=== PATIENT | male | born 1970 | race Caucasian/White ===

== ENCOUNTER → 2020-08-26 13:15 | Outpatient (BNVA) | payer OTHER, SELFPAY | PROVIDERS: PCP Family Medicine; Visit Provider Urology | DX: R10.9 Unspecified abdominal pain (principal); N52.9 Male erectile dysfunction, unspecified; Z87.442 Personal history of urinary calculi; Z85.528 Personal history of other malignant neoplasm of kidney; Z90.5 Acquired absence of kidney | CPT/HCPCS: 81002 ==

== ENCOUNTER → 2020-09-15 08:24 | Outpatient (BNVA) | payer OTHER, SELFPAY | PROVIDERS: PCP Family Medicine; Visit Provider Urology | DX: C64.9 Malignant neoplasm of unspecified kidney, except renal pelvis (principal); R10.9 Unspecified abdominal pain; N20.0 Calculus of kidney; Z90.5 Acquired absence of kidney | CPT/HCPCS: 99212 ==

== ENCOUNTER 2020-09-29 13:15 | Outpatient (REF) | payer OTHER, SELFPAY ==
--- NOTE | 2020-09-29 13:18 | CT_ITS ---
EXAMINATION: CT ABDOMEN AND PELVIS WITHOUT CONTRAST CLINICAL INFORMATION: Malignant neoplasm of kidney COMPARISON: Previous renal ultrasound most recent February [address] of the abdomen and pelvis November 2014 TECHNIQUE: Multidetector volumetric imaging was performed from the superior aspect of the liver through the pubic symphysis. Sagittal and coronal reformatted images were obtained on the technologist's workstation. This CT examination was performed using dose optimization techniques as appropriate, variously including the following: *Automated exposure control *Adjustment of mA and/or kV according to patient size (this includes techniques or standardized protocols for targeted exams where dose is matched to indication/reason for exam; i.e. extremities or head) *Use of iterative reconstruction technique DLP: 1016 mGy-cm FINDINGS: LUNG BASES: The visualized lung bases are unremarkable. LIVER, GALLBLADDER, AND BILIARY TREE: The liver is low in attenuation suggestive of mild fatty infiltration. No focal liver lesion is seen. The gallbladder is normal. There is no biliary duct dilatation. PANCREAS: Unremarkable. SPLEEN: Unremarkable. ADRENAL GLANDS: Unremarkable. KIDNEYS AND URETERS: There are bilateral renal stones. There are at least 8 right renal stones. Largest stones measure 4 mm in the lower pole of the right kidney. There is a 1 cm high attenuation lesion exophytic to the posterior upper pole of the right kidney axial image 40 series 3. This is similar in size but higher in attenuation compared to previous CT scan. There are 3 left renal stones. Largest measures 3 x 6 mm in the lower pole. There is a 2 cm simple-appearing cyst exophytic to the anterior mid left kidney. This is new or increased from previous exam. There is a new 1 cm high attenuation lesion exophytic to the posterior upper pole axial image 40 series 3. There is a new low-attenuation 1.5 cm probable cyst exophytic to the posterior mid pole axial image 37 series 3. Other smaller cysts seen by CT with contrast and ultrasound are not appreciated on the current exam without contrast. BLADDER: Not distended. GASTROINTESTINAL TRACT: There is mild diverticulosis of the colon. The small and large bowel are unremarkable. The appendix is unremarkable. ABDOMINAL WALL: No significant hernia is appreciated. LYMPH NODES: Normal. VASCULAR: Unremarkable. PELVIC VISCERA: Unremarkable. OSSEOUS STRUCTURES: There is postsurgical change at the L4-L5 disc space. There are degenerative changes of the spine. There are degenerative changes at the hip joints. CT/CT abdomen pelvis wo con IMPRESSION: Bilateral renal stones. New bilateral high attenuation renal lesions. It is uncertain whether this represents hyperdense cysts or solid lesions. Follow-up CT or MRI with and without contrast the kidney is recommended. Mild diverticulosis of the colon.
== END 2020-09-29 13:16 | disposition home or self-care (01) ==
LOC: HO.CT 13:15
PROVIDERS: PCP Family Medicine; Visit Provider Urology
DX: C64.9 Malignant neoplasm of unspecified kidney, except renal pelvis (principal); R10.9 Unspecified abdominal pain; N20.0 Calculus of kidney; Z90.5 Acquired absence of kidney
CPT/HCPCS: 74176

== ENCOUNTER → 2020-10-29 10:31 | Outpatient (BNVA) | payer OTHER, SELFPAY | PROVIDERS: PCP Family Medicine; Visit Provider Urology ==

== ENCOUNTER 2021-01-15 13:57 | Outpatient (REF) | payer OTHER, SELFPAY ==
--- NOTE | ~2021-01-15 | CT_ITS ---
EXAMINATION: CT ABDOMEN WITH CONTRAST CLINICAL INFORMATION: Acquired cyst of kidney. COMPARISON: CT abdomen and pelvis without contrast 09/29/2020 TECHNIQUE: Contiguous axial thin section helical images of the abdomen were performed following the administration of oral contrast and 85 mL of Omnipaque 350 intravenous contrast. The data set was reformatted in the coronal and sagittal planes and reviewed on an independent workstation. This CT examination was performed using dose optimization techniques as appropriate, variously including the following: *Automated exposure control *Adjustment of mA and/or kV according to patient size (this includes techniques or standardized protocols for targeted exams where dose is matched to indication/reason for exam; i.e. extremities or head) *Use of iterative reconstruction technique DLP: 820 mGy-cm FINDINGS: LUNG BASES: The heart size is normal. The lung bases are clear. LIVER, GALLBLADDER, AND BILIARY TREE: The liver is normal size, shape and low density. No focal lesion or intrahepatic ductal dilatation seen. PANCREAS: The pancreas is normal size and homogeneous in density. SPLEEN: The spleen is normal size. ADRENAL GLANDS AND KIDNEYS: Bilateral adrenal glands are symmetrical and normal. There are bilateral small radiopaque renal calculi similar to previous exam 09/29/2020. There are 2 lower pole left radiopaque calculi. Largest radiopaque calculi lower pole left kidney measures 1.1 cm and 6 mm calculi. The largest radiopaque calculi mid pole right kidney measures 8 mm. There are 2 radiopaque calculi in mid pole and at least 3 radiopaque calculi in the lower pole. There is no caliectasis or hydronephrosis seen. There are bilateral renal cysts. An exophytic upper pole cyst measures 2.9 x 2.4 cm. A 1 cm exophytic cyst midpole right kidney is complex measuring 33 Hounsfield units. There are several additional low-density small cortical cysts in the right kidney. There is bilateral perinephric stranding. BOWEL LOOPS: Scattered stool and gas seen throughout the colon without any significant distention. The small bowel loops are normal caliber. Appendix is not visualized with certainty. No free air or free fluid seen. LYMPH NODES: Normal. VASCULAR: Unremarkable. BONES: There is L4-L5 disc prosthesis effusion. No lytic or sclerotic process seen. There is moderate ventral spondylosis lower dorsal and upper lumbar spine. CT/CT abdomen w con IMPRESSION: Bilateral nonobstructive radiopaque renal calculi. There is no hydronephrosis. Bilateral renal cysts; most of them are simple cysts except for a midpole small exophytic right renal 1 cm complex cyst. Previously it measured 1.2 cm.
[2021-01-15 14:45] LABS: Blood Urea Nitrogen 18 mg/dL (9-16); Estimated Glomerular Filt Rate > 60
[2021-01-15] MEDS: iohexoL 350 MG/ML 100 ML INFUS..BTL IV (15:23)
== END 2021-01-15 13:58 | disposition home or self-care (01) ==
LOC: HO.CT 13:57
PROVIDERS: PCP Family Medicine; Visit Provider Urology
DX: N28.1 Cyst of kidney, acquired (principal); N26.1 Atrophy of kidney (terminal)
CPT/HCPCS: 36415; 74160; 82565; 84520; Q9967

== ENCOUNTER 2023-11-10 14:43 | Outpatient (AMB) | payer OTHER, SELFPAY ==
--- NOTE | 2023-11-10 14:46 | A.OFFVIS_ITS ---
Intake Intake Visit Reasons: abnormal CT findings Intake Note: Patient presents today for a follow-up on abnormal CT findings Meds- Pyridoxine Allergies to Antibiotic- No Known Allergies Blood Thinner- None Machinist Outside Required: No Accompanied by: Self / Same As Patient Allergies aspirin [Aspirin] Allergy (Intermediate, Verified 11/10/23 15:48) NOSE BLEED, nose bleeds celecoxib [From Celebrex] Allergy (Intermediate, Verified 11/10/23 15:48) STOMACH BLEED lisinopril [LISINOPRIL] Allergy (Mild, Verified 11/10/23 15:48) DIZZY, dizziness Medication List - Last Reconciled 11/10/23 by ZAIDA Molina buprenorphine-naloxone 8-2 mg film sublingual hydrochlorothiazide 25 mg PO DAILY losartan 100 mg PO DAILY pregabalin 150 mg PO BID sertraline 100 mg PO DAILY HPI HPI Comments History of Present Illness Details Leonel is a pleasant 53-year-old male patient of Dr. Fuentes. He has a past medical history of erectile dysfunction, renal cancer s/p right partial nephrectomy in 2013, nephrolithiasis, hypertension, and bronchitiits, gout, hx of substance use disorder, depression, and obesity. He presents to the office today for follow-up of his renal cancer and nephrolithiasis. In discussion with the patient today he reports having follow-up with his PCP at which time a renal ultrasound as well CT renal mass protocol was ordered and performed. These results were reviewed with the patient today. No evidence of suspicious renal lesion. Bilateral exophytic proteinaceous/hemorrhagic renal cyst, with left-sided lesion corresponding with abnormality on recent prior ultrasound. No dedicated follow-up required per radiology report. Multiple bilateral nonobstructing renal calculi measuring up to 1 cm in the left lower pole. Discussed at length stone burden with history of renal cancer and partial nephrectomy. Discussed risks and benefits of surveillance monitoring verses further surgical intervention with ureteroscopy. This was discussed at length. In discussion with the patient today he reports noting urinary dribbling/urinary hesitancy, erectile dysfunction, and nocturia. Discussed at length potential causes of urinary dribbling, ED, and nocturia. Patient reports feeling ED is related to his use of Suboxone. He reports having had a time where he was off Suboxone for approximately 2 weeks and had experienced no issues with his erectile dysfunction. He otherwise denies urinary urgency, urinary frequency, incontinence, hematuria, dysuria, foul smelling urine, flank pain, fever, and or chills. He does not feel lower urinary tract symptoms are bothersome at this time. He reports previously being on testosterone therapy with Dr. Arreola. Discussed obtaining labs for further assessment evaluation. In office urinalysis results reviewed with the patient today. He otherwise offers no other issues or concerns at this time. [facility] Medical History Erectile dysfunction Renal cancer Flank pain Renal stone History of kidney cancer Elevated blood pressure reading History of renal calculi Surgical History History of partial nephrectomy History of lithotripsy H/O partial nephrectomy Family History Other Lymphoma Review of Systems Const Reports no additional complaints Eyes Reports no additional complaints ENT Reports no additional complaints Card Reports as per HPI Resp Reports as per HPI GI Reports no additional complaints Reports as per HPI Musc Reports no additional complaints Neuro Reports no additional complaints Psych Reports as per HPI Endo Reports no additional complaints Physical Exam Const General: cooperative, comfortable, no acute distress, well developed, alert and awake Nutritional Appearance: overweight Orientation/consciousness: patient oriented x3 Limitations: no limitations HEENT Head: Yes normal to inspection, Yes normocephalic and Yes atraumatic Ears: hearing grossly normal bilaterally Eyes General: appearance normal, both eyes and all related structures Neck Neck: Yes normal visual inspection and Yes trachea midline Chest Chest palpation & inspection: normal inspection of the chest Resp Effort & Inspection: normal respiratory effort and able to speak in complete sentences Cardio Rate: regular rate GI Inspection: Yes normal to inspection General: Yes no CVA tenderness Back/Spine/Pelvis Back: no CVA tenderness Skin General skin exam: no rashes or lesions noted Neuro General: patient oriented x3 Extrem General: Yes normal to inspection Psych Appearance: grossly normal and well kempt Mental Status: mental status grossly normal Speech and movement: Normal speech and movement present and Clear speech present Affect: normal affect Attitude: cooperative Thought process: Normal thought process present Thought content: Normal thought content present Insight: Fair insight present (Psych) Judgement: Fair judgement present (Psych) Results AMB Urinalysis, Automated UA Leukoctes 0 Delmar/uL Last Edit by Khushi Mcclaingale Mcclain [facility] on 11/10/23 14 :58 UA Nitrite Negative Last Edit by [facility] on 11/10/23 14: 58 UA Urobilinogen 0.2 mg/dL Last Edit by [facility] on 4 14:58 UA Protein 30 mg/dL Last Edit by Khushi Mcclaingale Mcclain [facility] on 11/10/23 14:5 8 UA pH 6.0 Last Edit by Khushi Mcclaingale Mcclain [facility] on 11/10/23 14:58 UA Blood 10 Aftab/uL Last Edit by Khushi Mcclaingale Mcclain [facility] on 11/10/23 14:58 UA Specific [place] 1.025 Last Edit by [facility] on 14:58 UA Ketone Negative Last Edit by Khushi Mcclaingale Mcclain [facility] on 11/10/23 14:5 8 UA Bilirubin 0 mg/dL Last Edit by [facility] on 11/10/23 14: 58 UA Glucose 0 mg/dL Last Edit by [facility] on 11/10/23 14:58 Results Reviewed Results Reviewed: Laboratory Last Values Urine pH (Auto) 6.0 11/10/23 14:56 Specific [place] (Auto) 1.025 11/10/23 14:56 Urine Protein (Auto) 30 mg/dL 11/10/23 14:56 Glucose (UA)(Auto) 0 mg/dL 11/10/23 14:56 Urine Ketones (Auto) Negative 11/10/23 14:56 Urine Blood (Auto) 10 [place]/uL 11/10/23 14:56 Urine Nitrite (Auto) Negative 11/10/23 14:56 Urine Bilirubin (Auto) 0 mg/dL 11/10/23 14:56 Urine Urobilinogen (Auto) 0.2 mg/dL 11/10/23 14:56 Leukocyte Esterase (Auto) 0 [place]mar/uL 11/10/23 14:56 Assessment & Plan Assessment & Plan (1) Renal cysts, acquired, bilateral: Code(s): N28.1 - Cyst of kidney, acquired (2) History of partial nephrectomy: Code(s): Z90.5 - Acquired absence of kidney (3) Erectile dysfunction: Code(s): N52.9 - Male erectile dysfunction, unspecified (4) Renal cancer: Comment: Renal ultrasound Code(s): C64.9 - Malignant neoplasm of unspecified kidney, except renal pelvis (5) Renal stone: Code(s): N20.0 - Calculus of kidney (6) History of urinary hesitancy: Code(s): Z87.898 - Personal history of other specified conditions (7) Urinary dribbling: Code(s): N39.43 - Post-void dribbling Plan: Ureteroscopy We discussed the nature of the decision and reasonable alternatives for performing ureteroscopy. Options such as medical therapy were discussed. Interventions include chemical dissolution, ESWL, ureteroscopy with laser lithotripsy and stent placement, PCNL. The relative uncertainties and benefits related to each alternate procedure were adequately discussed. General surgical risks including, but not limited to - pain, bleeding, infection, myocardial infarction, pulmonary embolus, deep vein thrombosis and cerebrovascular accident which may result in further hospitalization were discussed.? Full disclosure of the procedure as well as all major risks, benefits and complications were discussed including but not limited to damage to the urethra, bladder and kidney infection, damage to the ureter, stent migration or malposition, scarring to the renal pelvis, remnant stone fragments, subsequent stone passage with need for secondary procedures. The overall secondary proced ure rate is approximately 10-15%.? The overall clearance rate is approximately 90-95%. Success of the procedure in the short-term does not necessarily guarantee that long-term success will be maintained. Suitable follow up will need to be maintained. The patient showed understanding of discussion and wishes to proceed with - cystoscopy, retrograde, ureteroscopy, possible lithotripsy/stone basketing and stent on the left side Plan In office urinalysis results reviewed with the patient today; as noted above. Recent CT renal mass protocol results reviewed with the patient today; as noted above. Will continue with surveillance monitoring given history of renal cancer Discussed at length importance of following up as advised as patient was last seen with Dr. Drummond in 2020. Discussed at length increased stone burden with a history of renal cancer and partial nephrectomy; discussed risks and benefits of surgical intervention versus surveillance monitoring. Will proceed with left-sided ureteroscopy given increase in stone burden on that side followed by right-sided ureteroscopy in the near future. Discussed obtaining PSA, testosterone, and free testosterone for further assessment evaluation. Discussed at length lifestyle modifications to assist with erectile dysfunction Will schedule for left-sided ureteroscopy as discussed Follow-up regarding labs in 1-3 months; or sooner with any issues, concerns, and or questions. Orders: Orders AMB Urinalysis Automated Today R33.9 - Retention of urine, unspecified Prostate Specific Antigen Today N39.43 - Post-void dribbling, Z90.5 - Acquired absence of kidney Testosterone, Free/Total Today N52.9 - Male erectile dysfunction, unspecified Patient Instructions: The patient had an opportunity to ask questions regarding the treatment plan. All questions were answered. Physical exam, labs, and imaging were discussed and reviewed in detail. As well as risks, benefits, and discussion of treatment choices. No major barriers to understanding were identified. The patient expressed understanding and agreement with the above treatment plan. The patient was made aware they should contact our office by phone for worsening of their current condition, the appearance of new symptoms, or with any questions or concerns. Compliance is encouraged with any medications and follow up testing that is ordered. It is a privilege to be allowed the opportunity to participate in? your urological care.? Again, if you have any questions or concerns If you have any questions or concerns please do not hesitate to contact me. The office is [phone]. This note is constructed using voice recognition software. While every effort has been made to ensure accuracy miter grinder operator errors may have been included. Yours sincerely, YUNI Molina Coding Level of Care Code Est Pt Level 4 (27956) Diagnoses Renal cysts, acquired, bilateral N28.1 History of partial nephrectomy Z90.5 Erectile dysfunction N52.9 Renal cancer C64.9 Renal stone N20.0 History of urinary hesitancy Z87.898 Urinary dribbling N39.43
== END 2023-11-10 15:45 | disposition home or self-care (01) ==
PROVIDERS: PCP Family Medicine; Visit Provider Nurse Practitioner Family
DX: N28.1 Cyst of kidney, acquired (principal); Z90.5 Acquired absence of kidney; N52.9 Male erectile dysfunction, unspecified; C64.9 Malignant neoplasm of unspecified kidney, except renal pelvis; N20.0 Calculus of kidney; Z87.898 Personal history of other specified conditions; N39.43 Post-void dribbling
CPT/HCPCS: 99214

== ENCOUNTER → 2023-11-10 14:43 | Outpatient (BNVA) | payer OTHER, SELFPAY | PROVIDERS: PCP Family Medicine; Visit Provider Nurse Practitioner Family | DX: N28.1 Cyst of kidney, acquired (principal); N52.9 Male erectile dysfunction, unspecified; R33.9 Retention of urine, unspecified; C64.9 Malignant neoplasm of unspecified kidney, except renal pelvis; N20.0 Calculus of kidney; N39.43 Post-void dribbling; Z87.898 Personal history of other specified conditions; Z90.5 Acquired absence of kidney | CPT/HCPCS: 81003 ==

== ENCOUNTER 2023-12-26 11:49 | Day surgery (SDC) | payer OTHER, SELFPAY ==
[2023-12-26] VITALS (8 sets, daily range): BP systolic 106–137; BP diastolic 44–69; PULSE 68–82; RESP 18–20; TEMP 36.5–36.6; O2SAT 95–98; BMI 46.2
--- NOTE | ~2023-12-26 | FL_ITS ---
EXAMINATION: XR FLUOROSCOPY WITH IMAGES CLINICAL INFORMATION: Cystoscopy. COMPARISON: 01/15/2021 TECHNIQUE: Fluoroscopy Supervised By: Physician. Fluoroscopy Time: 10.7 seconds. Cumulative Dose: 8.35 mGy. DAP: 0 Gycm2. Images: 3. FINDINGS: Images are obtained which show contrast within the left ureter as well as the placement of ureteral stents. FL/FL guidance in OR IMPRESSION: Fluoroscopy as described.
[2023-12-26] MEDS: Lactated Ringers 1,000 ML 80 ML IVCONT (14:26)
--- NOTE | 2023-12-26 14:44 | HO.ANESPROP2 ---
[facility] Active Problems Active Problems: All Active Problems Urinary dribbling (Acute) History of urinary hesitancy (Acute) Renal cysts, acquired, bilateral (Acute) History of partial nephrectomy (Acute) Erectile dysfunction (Acute) Renal cancer (Acute) Flank pain (Acute) Renal stone (Acute) Past Medical History Medical History Erectile dysfunction Renal cancer Flank pain Renal stone History of kidney cancer Elevated blood pressure reading History of renal calculi Family History Family History Other Lymphoma Family history of problems with anesthesia: No Surgical History Surgical History History of partial nephrectomy History of lithotripsy H/O partial nephrectomy History of Problems with Anesthesia: No Social History Social History Patient Tobacco Use Status: Current everyday Tobacco user Tobacco use type: Cigarette Smoked in Last 30 Days: Yes Patient Interested in Nicotine Replacement: No Are you DNR?: No Advance Directives: No Advance Directives Information Provided: Yes Nutrition Risks: No Nutritional Risk Meds Allergies Allergy/AdvReac Type Severity Reaction Status Date / Time aspirin [Aspirin] Allergy Intermediate NOSE Verified 12/26/23 13:42 BLEED, nose bleeds celecoxib [From Celebrex] Allergy Intermediate STOMACH Verified 12/26/23 13:42 BLEED lisinopril [LISINOPRIL] Allergy Mild DIZZY, Verified 12/26/23 13:42 dizziness Active Medications: Current Medications Lactated Ringer's (Lr) 1,000 mls @ 80 mls/hr IVCONT .[id number] [id number] Last Admin: 12/26/23 14:26 Dose: 80 mls/hr Home Medications ?Medication ?Instructions ?Recorded ?Confirmed ?Last Taken ?Type buprenorphine 8 mg-naloxone 2 mg film sublingual 11/07/23 11/10/23 12/26/23 History sublingual film hydrochlorothiazide 25 mg tablet 25 mg PO DAILY 11/07/23 12/26/23 Unknown History losartan 100 mg tablet 100 mg PO DAILY 11/07/23 12/26/23 12/26/23 History pregabalin 150 mg capsule 150 mg PO BID 11/07/23 12/26/23 Unknown History sertraline 100 mg tablet 100 mg PO DAILY 11/07/23 12/26/23 Unknown History Exam Height,Weight and Vital Signs: Height 6 ft 2 in Weight 163.293 kg Last Vital Signs Temp 97.9 F 12/26/23 14:16 Pulse 78 12/26/23 14:16 Resp 18 12/26/23 14:16 BP 137/68 12/26/23 14:16 Pulse Ox 95 12/26/23 14:16 O2 Del Method Room Air 12/26/23 14:16 Airway Mallampati Class: III TM Dist: >3cm Neck ROM: Full Assessment and Plan Assessment Anesthesia Assessment: Anesthesia Plan Discussed and Chart Reviewed Final Anesthetic Review Family History of Problems with Anesthesia: No History of Problems with Anesthesia: No NPO: Yes ASA Class: III Final Preanesthetic Review: No Changes in Pt Med Stat, Meds/Allgs Chart Reviewed, Consent Obtained/Reviewed and Anes Risks/Benef Reviewed Patient Risk: Intermediate Procedure Risk: Intermediate Anesthetic Plan Anesthetic Plan: GA Disposition: Standard PACU
--- NOTE | 2023-12-26 15:31 | PC.NURSE ---
report given to mann sarabia rn at this time.
--- NOTE | 2023-12-26 16:06 | MHC.SHP ---
Pre-Procedural Eval Section A - 24 Hr Update-Section A only Date of Service: 12/26/23 The patient is an INPATIENT: No Changes since office visit: No Cold of Flu in the past 2 weeks, No New Medical Problems, No Changes in Medication and No Patient answered all questions The patient has been examined within 24 hours of the surgical procedure. The History & Physical has been completed within 30 days and I have reviewed it.: Yes Section B - Complete if H&P > 30 days Chief Complaint: Calculus of kidney Allergies: Allergies Allergy/AdvReac Type Severity Reaction Status Date / Time aspirin [Aspirin] Allergy Intermediate NOSE Verified 12/26/23 13:42 BLEED, nose bleeds celecoxib [From Celebrex] Allergy Intermediate STOMACH Verified 12/26/23 13:42 BLEED lisinopril [LISINOPRIL] Allergy Mild DIZZY, Verified 12/26/23 13:42 dizziness Plan Diagnosis/Plan: Unchanged (Cystoscopy, left retrograde, left ureteroscopy with laser lithotripsy possible stent) I have reviewed the history and physical and performed a pertinent physical examination on my patient. No changes have occurred unless specified. Time Spent With Patient Time: Total time managing care of this patient today ____ minutes.
--- NOTE | 2023-12-26 17:05 | W.PM.OPN ---
Operative Note Operative Note Date of Service: 12/26/23 Narrative: PreOperative Diagnosis: Left renal stones Post Operative Diagnosis: Left renal stones Procedure: - cystoscopy, left retrograde - left dilatation of ureteric orifice under fluoroscopy - left ureteroscopy - left stent placement Surgeon: Dr Louie Drummond Anesthesia: General Indications for procedure: Stones on CT proximally 10 mm left lower pole Procedure: After informed consent was verified patient was brought to the operating placed in supine position. Anesthesia was administered per protocol. Patient was placed in modified dorsal lithotomy position and prepped and draped in a sterile fashion. Safety pause time-out and side of surgery confirmed. Antibiotics confirmed. 22 [place] Islander cystoscope was inserted per urethra. Bladder was normal in its entirety. Both ureteric orifices were in normal position. The left ureteric orifice was cannulated and a retrograde examination was performed. No filling defects seen on ureter. A Sensor guidewire was placed up to the level of the renal pelvis under fluoroscopy. The rigid cystoscope was removed and the inner cannula of ureteric access sheath was used under fluoroscopy to dilate the ureteric orifice. The ureteric access sheath was placed and the inner cannula with access wire removed. The digital flexible ureteral scope was placed. Within the left kidney there were multiple small stones consistent with small uric acid type stones that had clearly been a cluster within the left lower pole. Irrigation was performed. Small stones were every removed. At the completion of the stone procedure a Sensor wire was placed back into the renal pelvis. The rigid cystoscope was backloaded over the wire and advanced into the bladder. A 6 [place] Islander by variable length cm double-J stent was placed into the renal pelvis and bladder under a combination of fluoroscopy and direct visualization. The bladder was emptied. The patient tolerated the procedure well and was extubated in the operating room, and transferred in stable condition to the recovery area. Pathology: Drains: Stent
[2023-12-26] MEDS: fentaNYL citrate/PF 100 MCG/2 ML VIAL 50 MCG IVPUSH ×2 (17:45→17:55)
[2023-12-26] MEDS: Phenazopyridine HCL 100 MG TABLET PO (17:45)
[2023-12-26] MEDS: oxyCODONE HCl Immed Release 5 MG TABLET PO (18:06)
== END 2023-12-26 18:19 | disposition home or self-care (01) ==
PROVIDERS: PCP Family Medicine; Visit Provider Urology
PROC: (CPT 52332; principal; 2023-12-26 14:10)
DX: N20.0 Calculus of kidney (principal); C64.9 Malignant neoplasm of unspecified kidney, except renal pelvis; Z90.5 Acquired absence of kidney; N28.1 Cyst of kidney, acquired; R33.9 Retention of urine, unspecified; N39.43 Post-void dribbling; N52.9 Male erectile dysfunction, unspecified; Z87.898 Personal history of other specified conditions; I10 Essential (primary) hypertension; M10.9 Gout, unspecified; Z79.899 Other long term (current) drug therapy; Z88.8 Allergy status to other drugs, medicaments and biological substances; F17.210 Nicotine dependence, cigarettes, uncomplicated
CPT/HCPCS: 52332; C1758; C1769; C1894; C2617; J1956; J2704; J3010; Q9967

== ENCOUNTER → 2023-12-26 11:49 | Outpatient (BNV) | payer OTHER, SELFPAY | PROVIDERS: PCP Family Medicine; Visit Provider Urology | DX: N20.0 Calculus of kidney (principal) | CPT/HCPCS: 52332 ==

== ENCOUNTER 2023-12-30 14:50 | Outpatient (AMB) | payer OTHER, SELFPAY ==
--- NOTE | 2023-12-30 15:06 | MHC.OFFVIS ---
Intake Visit Reasons: H&P cytso stent removal Intake Note: Patient is present for H&P For cysto and stent removal in OR Allergies aspirin [Aspirin] Allergy (Intermediate, Verified 12/26/23 13:42) NOSE BLEED, nose bleeds celecoxib [From Celebrex] Allergy (Intermediate, Verified 12/26/23 13:42) STOMACH BLEED lisinopril [LISINOPRIL] Allergy (Mild, Verified 12/26/23 13:42) DIZZY, dizziness Medication List - Last Reconciled 12/30/23 by Louie Drummond MD allopurinol 100 mg PO DAILY 90 days buprenorphine-naloxone 8-2 mg film sublingual hydrochlorothiazide 25 mg PO DAILY losartan 100 mg PO DAILY phenazopyridine (Pyridium) 100 mg PO TID PRN 4 days potassium citrate ER 20 mEq (2 x 10 mEq (1,080 mg)) PO BID 90 days pregabalin 150 mg PO BID sertraline 100 mg PO DAILY tamsulosin 0.4 mg PO BEDTIME 14 days HPI Comments Details: Leonel is a pleasant male. He has a patient of Dr. Fuentes. He is seen for the following urologic conditions - nephrolithiasis Recent left ureteroscopy Will need removal of stent under sedation Findings at ureteroscopy were small stones consistent with degree of uric acid. Would recommend starting allopurinol and potassium citrate. Nephrolithiasis Longstanding Imaging - 10/19 - multiple stones bilateral, 4 mm maximum size on right, left lower pole 6 mm Treatment - 10/19 start vitamin B6 and allopurinol for stones Renal cancer Right pole partial nephrectomy 2013 Imaging - 10/19 BILATERAL CYSTS QUESTION OF SOLID VERSUS ENHANCING Repeat imaging with contrast PFSH Medical History Erectile dysfunction Renal cancer Flank pain Renal stone History of kidney cancer Elevated blood pressure reading History of renal calculi Surgical History History of partial nephrectomy History of lithotripsy H/O partial nephrectomy Family History Other Lymphoma Social History Patient Tobacco Use Status: Current everyday Tobacco user Tobacco use type: Cigarette Review of Systems Const Denies chills and Denies fever(s) Card Reports no additional complaints and Denies syncope Resp Denies cough GI Denies abdominal pain and Denies heartburn Reports as per HPI and Denies change in libido Neuro Denies syncope Psych Denies change in libido Endo Denies change in libido Physical Exam Const General: cooperative, healthy appearing, comfortable and no acute distress Orientation/consciousness: patient oriented x3 HEENT Face and sinus: Yes normal facial exam Mouth: moist mucous membranes Neck Neck: Yes normal visual inspection, Yes full ROM and Yes trachea midline Chest Chest palpation & inspection: normal inspection of the chest Resp Effort & Inspection: normal respiratory effort, able to speak in complete sentences and no respiratory distress GI Inspection: Yes normal to inspection Back/Spine/Pelvis Cervical Spine: normal cervical lordosis Thoracic/Lumbar Spine: thoracic and lumbar spine normal to inspection Skin General skin exam: no rashes or lesions noted Neuro General: patient oriented x3, gait normal, tone normal and moves all extremities Extrem General: Yes normal to inspection and Yes capillary refill normal Assessment & Plan Assessment & Plan (1) Renal cysts, acquired, bilateral: Code(s): N28.1 - Cyst of kidney, acquired Category: Medical (2) Erectile dysfunction: Code(s): N52.9 - Male erectile dysfunction, unspecified Category: Medical (3) Renal stone: Code(s): N20.0 - Calculus of kidney Category: Medical Plan Stop potassium citrate Try to add on for next week for sedation with stent removal Medications: New potassium citrate ER 20 mEq (2 x 10 mEq (1,080 mg)) PO BID 90 days 360 tabs 1RF N20.0 - Calculus of kidney Patient Instructions: Imaging studies, laboratory and physical exam results were discussed and reviewed in detail. No major barriers to patient understanding were identified. An opportunity to ask questions regarding the treatment plan was provided. All questions were answered. The patient expressed understanding and agreement with the above treatment plan. The patient is aware they should contact our office by phone for worsening of their current condition or the appearance of new urologic symptoms. Compliance is encouraged with any medications and followup testing that is ordered. It is a privilege to participate in the urologic care of your patient. If you have any questions or concerns regarding treatment for the above conditions, or other urologic issues, please do not hesitate to contact me. The office telephone contact is [phone]. This note is constructed using voice recognition software. While every effort has been made to ensure accuracy adult education instructor errors may have been included. Yours sincerely, Dr Louie Drummond MD, [facility] - Urology Providers of Expert, Compassionate Care for the Genitourinary System Coding Level of Care Code Est Pt Level 4 (54145) Diagnoses Renal cysts, acquired, bilateral N28.1 Erectile dysfunction N52.9 Renal stone N20.0
== END 2023-12-30 15:25 | disposition home or self-care (01) ==
PROVIDERS: PCP Family Medicine; Visit Provider Urology
DX: N28.1 Cyst of kidney, acquired (principal); N52.9 Male erectile dysfunction, unspecified; N20.0 Calculus of kidney
CPT/HCPCS: 99214

== ENCOUNTER → 2023-12-30 14:50 | Outpatient (BNVA) | payer OTHER, SELFPAY | PROVIDERS: PCP Family Medicine; Visit Provider Urology ==

== ENCOUNTER 2024-01-02 12:39 | Day surgery (SDC) | payer OTHER, SELFPAY ==
[2024-01-02 15:03] VITALS: BMI 46.2
[2024-01-02 15:08] VITALS: BP 143/96; PULSE 73; RESP 18; TEMP 36.6; O2SAT 97
[2024-01-02] MEDS: Lactated Ringers 1,000 ML 80 ML IVCONT (15:21)
[2024-01-02] MEDS: levoFLOXacin 500 MG TABLET PO (15:32)
--- NOTE | 2024-01-02 15:58 | PC.NURSE ---
report given to alternative education teacher sorin at this time.
--- NOTE | 2024-01-02 16:41 | MHC.SHP ---
Pre-Procedural Eval Section A - 24 Hr Update-Section A only Date of Service: 01/02/24 The patient is an INPATIENT: No Changes since office visit: No Cold of Flu in the past 2 weeks, No New Medical Problems, No Changes in Medication and No Patient answered all questions The patient has been examined within 24 hours of the surgical procedure. The History & Physical has been completed within 30 days and I have reviewed it.: Yes Section B - Complete if H&P > 30 days Chief Complaint: Calculus of kidney Details of Present Illness: Cystoscopy, stent removal Allergies: Allergies Allergy/AdvReac Type Severity Reaction Status Date / Time aspirin [Aspirin] Allergy Intermediate NOSE Verified 12/26/23 13:42 BLEED, nose bleeds celecoxib [From Celebrex] Allergy Intermediate STOMACH Verified 12/26/23 13:42 BLEED lisinopril [LISINOPRIL] Allergy Mild DIZZY, Verified 12/26/23 13:42 dizziness Plan Diagnosis/Plan: Unchanged I have reviewed the history and physical and performed a pertinent physical examination on my patient. No changes have occurred unless specified. Time Spent With Patient Time: Total time managing care of this patient today ____ minutes.
--- NOTE | 2024-01-02 16:50 | P.CONAN_ITS ---
[facility] Active Problems Active Problems: All Active Problems Urinary dribbling (Acute) History of urinary hesitancy (Acute) Renal cysts, acquired, bilateral (Acute) History of partial nephrectomy (Acute) Erectile dysfunction (Acute) Renal cancer (Acute) Flank pain (Acute) Renal stone (Acute) Past Medical History Medical History Erectile dysfunction Renal cancer Flank pain Renal stone History of kidney cancer Elevated blood pressure reading History of renal calculi Family History Family History Other Lymphoma Family history of problems with anesthesia: No Surgical History Surgical History History of partial nephrectomy History of lithotripsy H/O partial nephrectomy History of Problems with Anesthesia: No Social History Social History Patient Tobacco Use Status: Current everyday Tobacco user Tobacco use type: Cigarette Smoked in Last 30 Days: Yes Are you DNR?: No Advance Directives: No Advance Directives Information Provided: Yes Nutrition Risks: No Nutritional Risk Meds Allergies Allergy/AdvReac Type Severity Reaction Status Date / Time aspirin [Aspirin] Allergy Intermediate NOSE Verified 12/26/23 13:42 BLEED, nose bleeds celecoxib [From Celebrex] Allergy Intermediate STOMACH Verified 12/26/23 13:42 BLEED lisinopril [LISINOPRIL] Allergy Mild DIZZY, Verified 12/26/23 13:42 dizziness Active Medications: Current Medications Fentanyl (Fentanyl Citrate/Pf 100 Mcg/2 Ml Vial) 25 mcg IVPUSH Q5M PRN; Protocol PRN Reason: Pain, Moderate(Pain Scale 4-6) Stop: 01/02/24 22:24 Hydromorphone HCl (Hydromorphone Hcl 0.5 Mg/0.5 Ml Syringe) 0.5 mg IVPUSH Q5M PRN; Protocol PRN Reason: Pain, Severe (Pain Scale 7-10) Stop: 01/02/24 22:24 Lactated Ringer's (Lr) 1,000 mls @ 80 mls/hr IVCONT .[id number] Last Admin: 01/02/24 15:21 Dose: 80 mls/hr Home Medications ?Medication ?Instructions ?Recorded ?Confirmed ?Last Taken ?Type buprenorphine 8 mg-naloxone 2 mg film sublingual 11/07/23 12/30/23 01/01/24 History sublingual film hydrochlorothiazide 25 mg tablet 25 mg PO DAILY 11/07/23 01/02/24 Unknown History losartan 100 mg tablet 100 mg PO DAILY 11/07/23 01/02/24 01/02/24 History pregabalin 150 mg capsule 150 mg PO BID 11/07/23 01/02/24 Unknown History sertraline 100 mg tablet 100 mg PO DAILY 11/07/23 01/02/24 01/02/24 History Exam Height,Weight and Vital Signs: Height 6 ft 2 in Weight 163.293 kg Last Vital Signs Temp 97.8 F 01/02/24 15:08 Pulse 73 01/02/24 15:08 Resp 18 01/02/24 15:08 BP 143/96 H 01/02/24 15:08 Pulse Ox 97 01/02/24 15:08 O2 Del Method Room Air 01/02/24 15:08 Airway Mallampati Class: II TM Dist: <=3cm Neck ROM: Full Loose/Missing/Broken Teeth: No Heart: rrr Lungs: cta Assessment and Plan Assessment Anesthesia Assessment: Anesthesia Plan Discussed and Smoking Cess. Discussed Final Anesthetic Review Family History of Problems with Anesthesia: No History of Problems with Anesthesia: No NPO: Yes ASA Class: I and III Final Preanesthetic Review: No Changes in Pt Med Stat, Meds/Allgs Chart Reviewed, Consent Obtained/Reviewed and Anes Risks/Benef Reviewed Patient Risk: Intermediate Procedure Risk: Low Anesthetic Plan Anesthetic Plan: MAC: Disposition: Standard PACU
--- NOTE | 2024-01-02 17:19 | W.PM.OPN ---
Operative Note Operative Note Date of Service: 01/02/24 Narrative: PreOperative Diagnosis: Indwelling left stent Post Operative Diagnosis: Indwelling left ureteric stent Procedure: Cystoscopy, stent removal Surgeon: Dr Louie Drummond Anesthesia: Sedation Indications for procedure: Did not tolerate cystoscopy with stent removal in office Procedure: After informed consent was verified the patient was brought to the operating room and placed in a supine position. Anesthesia was administered per protocol. The patient was prepped and draped in a sterile fashion. Safety pause time-out was performed. Antibiotics being given. Cystoscopy performed using a disposable Urovue digital 16 [place] cystoscope. Meatus circumcised Urethra anterior and posterior urethra normal Prostatic Urethra unremarkable Bladder examination with retroflexion of cystoscope Stent seen emerging from left orifice. Stent grasped and removed. Pathology: Drains:
[2024-01-02 17:23] VITALS: BP 110/65; PULSE 79; RESP 18; TEMP 36.6; O2SAT 99
[2024-01-02] MEDS: NaPROXEN 500 MG TABLET PO (17:33)
[2024-01-02] MEDS: Phenazopyridine HCL 100 MG TABLET PO (17:33)
[2024-01-02 17:38] VITALS: BP 126/70; PULSE 67; RESP 18; TEMP 36.6; O2SAT 94
== END 2024-01-02 17:51 | disposition home or self-care (01) ==
PROVIDERS: PCP Family Medicine; Visit Provider Urology
PROC: (CPT 52310; principal; 2024-01-02 14:20)
DX: N20.0 Calculus of kidney (principal); Z46.6 Encounter for fitting and adjustment of urinary device; Z85.528 Personal history of other malignant neoplasm of kidney; Z90.5 Acquired absence of kidney; N28.1 Cyst of kidney, acquired; N52.9 Male erectile dysfunction, unspecified; R03.0 Elevated blood-pressure reading, without diagnosis of hypertension; Z79.899 Other long term (current) drug therapy; Z88.8 Allergy status to other drugs, medicaments and biological substances; F17.210 Nicotine dependence, cigarettes, uncomplicated
CPT/HCPCS: 52310; J2250; J2704; J3010

== ENCOUNTER → 2024-01-02 12:39 | Outpatient (BNV) | payer OTHER, SELFPAY | PROVIDERS: PCP Family Medicine; Visit Provider Urology | DX: Z96.0 Presence of urogenital implants (principal) | CPT/HCPCS: 52310 ==